=== PATIENT | female | born 1995 | race Asian ===

== ENCOUNTER 2018-06-04 15:56 | Emergency (ER) | payer OTHER ==
--- NOTE | 2018-06-04 16:41 | ER Report ---
History and Physical Time Seen By MD: 13:10 HPI/ROS CHIEF COMPLAINT: head injury HISTORY OF PRESENT ILLNESS: Pt was skiing today, unhelmeted, when she fell, struck forehead, and had LOC x 2 min. She did not have sz activity, vomiting, regained consciousness, and now has only mild newsome, no weakness, mild naueasa, no vomiting, is mildly confused about events, but does not have retrograde amnesia. REVIEW OF SYSTEMS: Constitutional: No fever, no chills. Eyes: no blurred vision, double vision ENT: no facial pain or difficulty swallowing. Cardiovascular: No chest pain, no palpitations. Respiratory: No cough, no shortness of breath. Gastrointestinal: No abdominal pain, no vomiting. Genitourinary: no change in urination Musculoskeletal: No back pain. Skin: No rashes. Neurological: above Remainder of the 14 system rev: Yes Allergies: Coded Allergies: Penicillins (Verified Allergy, Unknown, 06/04/18) Home Meds No Active Prescriptions or Reported Meds Reviewed Nurses Notes: Yes Constitutional Vital Sign - Last 24 Hours 06/04/18 06/04/18 06/04/18 06/04/18 16:22 16:26 16:28 16:41 Temp 99.0 Pulse 110 114 98 Resp 14 B/P (MAP) 120/82 120/82 (95) Pulse Ox 93 90 93 O2 Delivery Room Air 06/04/18 06/04/18 06/04/18 06/04/18 16:56 17:00 17:11 17:26 Pulse 106 98 100 B/P (MAP) 105/80 (88) Pulse Ox 93 93 94 06/04/18 06/04/18 17:30 17:41 Pulse 104 B/P (MAP) 104/76 (85) Pulse Ox 92 Physical Exam General Appearance: The patient is alert, has no immediate need for airway protection and no signs of toxicity. Eyes: Pupils equal and round no pallor or injection. No nystagmus ENT, Mouth: Mucous membranes are moist. Dentition intact, no laxity. MF stable 1x1cm contusion mid forehead. No other injury, ttp no hemotympanum No rowland sign Respiratory: There are no retractions, lungs are clear to auscultation. Cardiovascular: Regular rate and rhythm. Gastrointestinal: Abdomen is soft and non tender, no masses, bowel sounds normal. Neurological: alert, oriented x 3, cn ii-xii intact. Nl cerebellar. 5/5 ms throughout. Nl gait Skin: Warm and dry, no rashes. Musculoskeletal: mild c5 ttp. Pt placed in c collar. Extremities are nontender, nonswollen and have full range of motion. DIFFERENTIAL DIAGNOSIS: After history and physical exam differential diagnosis was considered for closed head injury, intracranial hemorrhage, cervical spine fracture/ligament injury, or other emergent etiology. Medical Decision Making ED Course/Re-evaluation ED Course Pt presents with concerning mechanism of injury and loc x 2 min reportedly, though now with nl neuro exam. CT head/cspine obtained and unremarkable. Pt comfortable afterwards. low posttest prob for emergent injury. Discussed concussion/postconcussive precautions at length. Pt understands. Decision to Disposition Date: Jun 04, 2018 Decision to Disposition Time: 17:33 Depart Departure Latest Vital Signs Vital Signs Date Time Temp Pulse Resp B/P (MAP) Pulse Ox O2 Delivery O2 Flow Rate FiO2 06/04/18 17:41 104 92 06/04/18 17:30 104/76 (85) 06/04/18 16:22 99.0 14 Room Air Impression: Primary Impression: CONCUSSION W LOC OF 30 MINUTES OR LESS, INIT Condition: Improved Disposition: HOME OR SELF-CARE New Scripts No Active Prescriptions or Reported Meds Patient Instructions: Concussion (ED), Post Concussion Syndrome (ED) Additional Instructions: As we discussed, you will have continued headache. You may have changes in sleep, appetite, and ability to concentrate. NO sporting activities (skiing) until 1 week after symptoms resolve. Please return for confusion, weakness, concerning pain or any concerns. URBANO JHAVERI MD Jun 04, 2018 16:41
--- NOTE | 2018-06-04 17:22 | RADIOLOGY IMAGING REPORT ---
FACILITY: [facility] - [place] PATIENT NAME: Jeremy Arora : 1995 MR: [id number] V: [id number] EXAM DATE: ORDERING PHYSICIAN: URBANO JHAVERI TECHNOLOGIST: Location: [facility] - [place] Patient: Jeremy Arora : 1995 Visit/Account:[id number] Date of Sevice: 06/04/2018 Study: CT scan of the brain without intravenous contrast. Indication: Head injury Comparison study:None Technique: Multiple axial images were obtained through the brain without the use of intravenous contr ast. One of the following dose optimization techniques was utilized in the performance of this exam: Autom ated exposure control; adjustment of the mA and/or kV according to the patient's size; or use of an i terative reconstruction technique. Specific details can be referenced in the facility's radiology C T exam operational policy. The examination demonstrates no evidence of acute intracranial hemorrhage. There is no evidence of ex tra-axial collection or hydrocephalus. There is no abnormal density identified within the brain parenchyma. There is no evidence of disruption of the peripheral maier-white junction. The bony structures are unremarkable. IMPRESSION:Unremarkable CT scan of the brain without contrast. Report Dictated By: Master Joyner at 06/04/2018 5:14 PM Report E-Signed By: Master Joyner at 06/04/2018 5:18 PM WSN:[email or web address]
--- NOTE | 2018-06-04 17:23 | RADIOLOGY IMAGING REPORT ---
FACILITY: [facility] PATIENT NAME: Jeremy Arora : 1995 MR: [id number] V: [id number] EXAM DATE: ORDERING PHYSICIAN: URBANO JHAVERI TECHNOLOGIST: Location: [facility] - [place] Patient: Jeremy Arora : 1995 Visit/Account:[id number] Date of Sevice: 06/04/2018 Study: CT VERTEBRA CERVICAL (NON CON) Indication: fall, loc, amnestic COMPARISON STUDIES: none TECHNIQUE: Axial images were obtained from the skull base through the upper thoracic spine without i ntravenous contrast. Coronal and sagittal reformatted images were obtained from the axial source data . One of the following dose optimization techniques was utilized in the performance of this exam: Autom ated exposure control; adjustment of the mA and/or kV according to the patient's size; or use of an i terative reconstruction technique. Specific details can be referenced in the facility's radiology C T exam operational policy. FINDINGS: Pre-vertebral soft tissues: Negative Alignment: negative Vertebral bodies: Negative Posterior elements: Negative Disc Spaces: Negative Visualized soft tissues anterior neck: Negative Visualized lung / mediastinum: Negative IMPRESSION: Negative for acute fracture or spondylolisthesis. Report Dictated By: Master Joyner at 06/04/2018 5:18 PM Report E-Signed By: Master Joyner at 06/04/2018 5:19 PM WSN:[email or web address]
[2018-06-04 17:30] VITALS: BP 104/76
== END 2018-06-04 17:45 | disposition home or self-care (01) ==
LOC: ER 16:15
DX: S06.0X1A Concussion with loss of consciousness of 30 minutes or less, initial encounter (principal); W18.30XA Fall on same level, unspecified, initial encounter; Y93.17 Activity, water skiing and wake boarding
CPT/HCPCS: 70450; 72125; 99284